=== PATIENT | male | born 1950 | race Caucasian/White ===

== ENCOUNTER 2023-02-02 06:30 | Emergency (ER) | payer OTHER ==
--- OUTSIDE RECORDS SUMMARY | 2023-02-02 06:37 | EXTERNAL MEDICAL SUMMARY RPT | Continuity of Care Document ---
:1950 Author Organization [facility] Address [address] [place] [address] Phone Allergies No information. Encounters No information. Functional Status No information. Immunizations No information. Medications No information. Problems date description facility 2022-11-08 14:08 Ventricular tachycardia, unspecified [facility] Procedures No information. Results/Labs No information. Social History No information. Vital Signs No information.
[2023-02-02] MEDS ORDERED: KETOROLAC 15 MG/ML VIAL IVP STA (06:57)
--- NOTE | 2023-02-02 07:01 | ED Physician Documentation ---
PD HPI HEADACHE - Stated complaint Stated Complaint: STIFF NECK/HEADACHE - Chief complaint Chief Complaint: Trauma Hd/Nk - History of Present Illness Timing - onset: Yesterday Timing - details: Abrupt onset, Still present Worst headache ever?: Worst headache ever? (yes) Location: Back Quality: Other (sharp pain) Associated symptoms: Stiff neck (hurts for ROM and worse with lying down). No: Fever, Nausea, Weakness, Numbness, Vision changes Improved by: Rest. No: Meds (no change with Advil.) Worsened by: Moving. No: Light, Noise Contributing factors: No: Recent illness, Trauma (was gardening 2 days prior without noted injury.) Recently seen: Not recently seen PD PAST MEDICAL HISTORY - Past Medical History Past Medical History: Yes Cardiovascular: Hypertension Neuro: None GI: None - Past Surgical History Past Surgical History: No - Present Medications Home Medications: Ambulatory Orders Medication Instructions Recorded Confirmed hydroCHLOROthiazide [Hydrodiuril] 25 mg PO DAILY 11/19/22 02/02/23 Potassium Chloride 02/02/23 - Allergies Allergies/Adverse Reactions: Allergies Allergy/AdvReac Type Severity Reaction Status Date / Time No Known Drug Allergies Allergy Verified 02/02/23 06:35 - Social History Does the pt smoke?: No Smoking Status: Former smoker Does the pt drink ETOH?: No Does the pt have substance abuse?: No - Immunizations Immunizations are current?: Yes - POLST Patient has POLST: No PD ED PE NORMAL - Vitals Vital signs reviewed: Yes - General General: Alert and oriented X 3, Well developed/nourished - Neck Neck: No adenopathy, No bruit, Other (guarded ROM of the neck. Tender upper neck more to right, in occipital ridge area. No rash nor redness. Not tender to light touch. ) - Derm Derm: Normal color, Warm and dry, No rash - Neuro Neuro: Alert and oriented X 3, No motor deficit, No sensory deficit, Normal speech Results - Vitals Vitals: Vital Signs - 24 hr 02/02/23 06:38 Temperature 37.0 C Heart Rate 68 Respiratory 16 Rate Blood Pressure 156/78 H O2 Saturation 99 Oxygen O2 Source Room air PD Medical Decision Making - ED course ED course: Abrupt onset of posterior neck and occipital headache without noted trauma. Has continued since yesterday with severe pain worse with laying down and movement. No radiation to the extremities. No focal weakness or numbness. No change in vision. He has not had any prior similar episodes. He states that as the worst headache of his life. No recent illness otherwise. I feel consideration for structural problems within the neck such as bony lesions, disc herniation, compressive injuries etc. should be evaluated. Also in consideration would be vascular such as aneurysms or bleeds or dissection. Structural within the brain should be considered as well such as tumors or mass effect. As such I feel the most appropriate testing would be imaging of CT scan of the head and neck with angiography to assess the above possibilities. Still in consideration would be a simple muscular type pain with occipital neuritis.
[2023-02-02] MEDS ORDERED: iohexoL-300 100 ML VIAL ONE (07:15)
[2023-02-02 07:34] LABS: CALCIUM 9.2 mg/dL (8.5-10.3); CREATININE 0.8 mg/dL (0.6-1.2); POTASSIUM 3.7 mmol/L (3.5-5.0)
[2023-02-02 07:48] LABS: BASOPHILS % (AUTO) 0.2 %; EOSINOPHILS % (AUTO) 0.3 %; HCT - HEMATOCRIT 40.7 % (42.0-52.0); HGB - HEMOGLOBIN 14.2 g/dL (14.0-18.0); LYMPHOCYTES # (AUTO) 1.5 10^3/uL (1.5-3.5); LYMPHOCYTES % (AUTO) 12.8 %; MEAN CORPUSCULAR HEMOGLOBIN 33.8 pg (27.0-31.0); MEAN CORPUSCULAR HGB CONC 34.9 g/dL (32.0-36.0); MEAN CORPUSCULAR VOLUME 96.9 fL (80.0-94.0); MEAN PLATELET VOLUME 9.9 fL (7.4-11.4); MONOCYTES % (AUTO) 8.6 %; NEUTROPHILS % (AUTO) 77.8 %; PLT - PLATELET COUNT 299 10^3/uL (130-450); RED CELL DISTRIBUTION WIDTH 11.7 % (12.0-15.0); WHITE BLOOD COUNT 11.5 x10^3/uL (4.8-10.8)
[2023-02-02] MEDS ORDERED: DEXAMETHASONE 10 MG/ML VIAL IVP STA (08:21)
[2023-02-02] MEDS ORDERED: SODIUM CHLORIDE 0.9% 500 ML IV STA (08:27)
--- NOTE | 2023-02-02 08:31 | CT Report ---
PROCEDURE: ANGIO HEAD W/WO INDICATIONS: abrupt severe posterior neck/headache CONTRAST: 80ml omni 300 TECHNIQUE: Precontrast 4.5 mm thick angled axial sections acquired from the foramen magnum to the vertex. Afte r the administration of intravenous contrast, 1 mm thick sections acquired through the [place] of [place] is. Postcontrast 4.5 mm thick sections then re-acquired from the foramen magnum to the vertex. 3-di mensional lmnfiwr-zkhnemyed-esblivcvpm (MIP) and/or volume rendering reformats were acquired of the c entral intracranial vasculature. For radiation dose reduction, the following was used: automated ex posure control, adjustment of mA and/or kV according to patient size. COMPARISON: CTA neck 02/02/2023 FINDINGS: Image quality: Excellent. Anterior circulation: Intracranial internal carotid arteries are normal in size and flow. The flow within the paired anterior cerebral arteries is normal and symmetric. The flow within the middle cer ebral arteries is normal and symmetric. The anterior communicating artery is seen. No aneurysms are seen. Posterior circulation: There is a left vertebral artery dominance. Visualized portions of the verteb ral arteries demonstrate normal caliber, and join to form a normal appearing basilar artery. Flow wi thin the posterior cerebral arteries is normal and symmetric. No aneurysms are seen. The ventricular system and cortical sulci demonstrate atrophy, consistent for patient's stated age. There are areas of hypodensity in the periventricular and subcortical white matter. There is no acut e intra or extra-axial fluid collection. No acute hemorrhage, mass lesion or midline shift. Brainst em is unremarkable. Globes are symmetrical. Sinuses demonstrate mucus retention cyst versus polyp in the right maxillary sinus. Osseous structures are intact. IMPRESSION: 1. No acute intracranial process. 2. Moderate atrophy and chronic microvascular ischemic changes. 3. No areas of hemodynamically significant stenosis, vascular occlusion or aneurysmal dilation within the anterior or posterior circulation. Reviewed by: Katy Vences MD on 02/02/2023 8:29 AM PST Approved by: Katy Vences MD on 02/02/2023 8:29 AM PST Station ID: [id number]
--- NOTE | 2023-02-02 08:31 | CT Report ---
PROCEDURE: ANGIO NECK W INDICATIONS: abrupt severe posterior neck/headache CONTRAST: 80ml omni 300 TECHNIQUE: After the administration of intravenous contrast, 1.5 mm axial sections acquired from the aortic arch to the [place] of [place]. Coronal 3-D maximum intensity projection (MIP) and/or volume rendering ref ormats were then performed. For radiation dose reduction, the following was used: automated exposur e control, adjustment of mA and/or kV according to patient size. COMPARISON: CTA head 02/02/2023 FINDINGS: Image quality: Excellent. Carotid system: The great vessels demonstrate a conventional anatomy as they arise from the aortic a rch. The origins of the common carotid arteries appear patent. The common carotid arteries demonstr ate normal calibers and courses. The bifurcation regions appear normal bilaterally. The internal ca rotid arteries demonstrate normal caliber and course. Posterior circulation: The origins of the vertebral arteries appear patent. The more superior porti ons of the vertebral arteries demonstrate normal course and caliber. They join to form a normal appe aring basilar artery. Soft tissues: Visualized neck soft tissues demonstrate no suspicious abnormalities. The thyroid is normal in size and there are no incidental findings. Bones: No suspicious bony lesions. Visualized cervical spine appears normally aligned. IMPRESSION: There are no areas of hemodynamically significant stenosis, vascular occlusion or aneurysmal dilation within the neck vasculature. The estimate of stenosis included in the report of the imaging study was calculated using the NASCET method CLINICAL RECOMMENDATION STATEMENTS: In patients <35 years with an ITN detected on CT, MRI, or extrathyroidal ultrasound, the Committee re commends further evaluation with dedicated thyroid ultrasound if the nodule is "e1 cm and has no susp icious imaging features, and if the patient has normal life expectancy. In patients "e35 years with an ITN detected on CT, MRI, or extrathyroidal ultrasound, the Committee r ecommends further evaluation with dedicated thyroid ultrasound if the nodule is "e1.5 cm and has no s uspicious imaging features, and if the patient has normal life expectancy. (ACR, 2014) Reviewed by: Katy Vences MD on 02/02/2023 8:30 AM PST Approved by: Katy Vences MD on 02/02/2023 8:30 AM PST Station ID: [id number]
[2023-02-02] MEDS ORDERED: SODIUM CHLORIDE 0.9% 1,000 ML IV STA (08:40)
--- NOTE | 2023-02-02 08:49 | ED Physician Documentation ---
PD HPI NECK PAIN - Stated complaint Stated Complaint: STIFF NECK/HEADACHE - Chief complaint Chief Complaint: Trauma Hd/Nk - History obtained from History obtained from: Patient, Family - History of Present Illness Timing - onset: How many days ago (3) Timing - duration: Days (3) Timing - details: Abrupt onset, Still present Location: Right Quality: Pain, Spasm, Sharp Associated symptoms: Other (headache). No: Fever, Weakness, Numbness, Incontinent of urine, Unable to urinate, Hematuria, Incontinent of stool Improves with: Rest, Position Worsened by: Movement, Palpation Contributing factors: Other (hx of golfing and weight lifting) Similar symptoms before: Has not had sx before Recently seen: Not recently seen - Additional information Additional information: 72-year-old Nuno Alaniz who has a history of hypertension and hemochromatosis has developed acute neck pain about 3 days ago. He has had wo rsening of this neck pain over the past 3 days and has a severe headache. He notes the onset of this to be acute and not typical to what has happened to him previously. He previously will have some stiff neck or muscle spasm in his upper back after playing golf and this usually resolves within a day. He does state that he did play golf last week and he did do some weightlifting as well. Days before the onset of this pain. He has not otherwise been ill. He does take hydrochlorothiazide and he typically will drink less fluids if he has to travel somewhere. Review of Systems Constitutional: denies: Fever, Chills, Myalgias Eyes: denies: Decreased vision Ears: denies: Ear pain Nose: denies: Rhinorrhea / runny nose, Congestion Throat: denies: Sore throat Cardiac: denies: Chest pain / pressure Respiratory: denies: Dyspnea, Cough GI: denies: Abdominal Pain, Nausea, Vomiting : denies: Dysuria, Frequency Skin: denies: Rash Musculoskeletal: reports: Neck pain. denies: Back pain, Extremity pain Neurologic: reports: Headache. denies: Generalized weakness, Focal weakness, Numbness, Difficulty speaking, Near syncope, Confused, Altered mental status, Head injury, LOC PD PAST MEDICAL HISTORY - Past Medical History Past Medical History: Yes Cardiovascular: Hypertension Neuro: None GI: None - Past Surgical History Past Surgical History: No - Present Medications Home Medications: Ambulatory Orders Medication Instructions Recorded Confirmed hydroCHLOROthiazide [Hydrodiuril] 25 mg PO DAILY 11/19/22 02/02/23 Cyclobenzaprine [Flexeril] 10 mg PO TID PRN #20 tablet 02/02/23 HYDROcod/ACETAM 5/325 [[place] 5/325] 1 - 2 tablet PO Q6H PRN #14 tablet 02/02/23 Potassium Chloride 02/02/23 - Allergies Allergies/Adverse Reactions: Allergies Allergy/AdvReac Type Severity Reaction Status Date / Time No Known Drug Allergies Allergy Verified 02/02/23 06:35 - Social History Does the pt smoke?: No Smoking Status: Former smoker Does the pt drink ETOH?: No Does the pt have substance abuse?: No - Immunizations Immunizations are current?: Yes - POLST Patient has POLST: No PD ED PE NORMAL - Vitals Vital signs reviewed: Yes (hypertensive ) - General General: Alert and oriented X 3, Well developed/nourished, Other (Supervisor Plasma tone and flattened affect consistent with pain) - HEENT HEENT: Atraumatic, PERRL, EOMI - Neck Neck: No bony TTP, Other (The neck has poor ROM secondary to pain. There is tenderness to the tapezius at the insertion to the occiput but without the typical tension seen in the muscle itself. 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, No motor deficit, No sensory deficit, Normal speech Eye Opening: Spontaneous Motor: Obeys Commands Verbal: Oriented GCS Score: 15 - Psych Psych: Normal mood Results - Vitals Vitals: Vital Signs - 24 hr 02/02/23 06:38 Temperature 37.0 C Heart Rate 68 Respiratory 16 Rate Blood Pressure 156/78 H O2 Saturation 99 Oxygen O2 Source Room air - Labs Labs: Laboratory Tests 02/02/23 02/02/23 02/02/23 07:16 07:16 07:16 WBC 11.5 H RBC 4.20 L Hgb 14.2 Hct 40.7 L MCV 96.9 H MCH 33.8 H MCHC 34.9 RDW 11.7 L Plt Count 299 MPV 9.9 Neut # (Auto) 9.0 H Lymph # (Auto) 1.5 Alfalfa # (Auto) 1.0 Eos # (Auto) 0.0 Baso # (Auto) 0.0 Absolute Nucleated RBC 0.00 Nucleated RBC % 0.0 ESR 29 H Sodium 137 Potassium 3.7 Chloride 103 Carbon Dioxide 27 Anion Gap 7.0 BUN 19 Creatinine 0.8 Estimated GFR (MDRD) 94 Glucose 111 H Calcium 9.2 - Rads (name of study) CTA neck Radiology: Prelim report reviewed (Impression: There are no areas of hemody namically significant stenosis, vascular occlusion or aneurysmal dilation within the neck vasculature.), EMP read indepedently, See rad report CTA head Radiology: Prelim report reviewed (Impression: 1. No acute intracranial process. Moderate atrophy and chronic microvascular ischemic changes. No areas of hemodynamically significant stenosis vascular occlusion or aneurysmal dilation with any anterior or posterior circulation.), EMP read indepedently, See rad report Procedures - IVC sono (time) 0840 Bedside IVC sono: IVC measures (cm) (0.9), IVC collapsed c insp (cm) (complete), Dehydration (est 1+ liter deficit) PD Medical Decision Making - ED course Complexity details: reviewed old records, reviewed results, re-evaluated patient, considered differential, d/w patient, d/w family Reviewed Lab Results: We reviewed a complete blood count with a mildly elevated white blood cell count at 11.5 normal hemoglobin and hematocrit and normal platelets. We found the sedimentation rate to be elevated at 29 and his chemistries were otherwise unremarkable with normal electrolytes BUN and creatinine ED course: 72-year-old male presents to the emergency part with acute neck pain and a severe headache. Prior to my arrival to the emergency department the off going emergency department physician Dr. Flores evaluated the patient found him to have some tenderness to his neck and the worst headache of his life. The patient's history was consistent with the possibility of a vascular dissection and a CTA of the head and neck were performed which were unremarkable. The patient responded to treatment with Toradol with improvement in his headache he was given a dose of dexamethasone as well with further improvement. The patient indicates by further history that he is taking hydrochlorothiazide and frequently will have muscle spasms in his upper back and neck. He also indicates that typically if he is traveling somewhere he will decrease his oral intake of fluid so that he does not have to get up to go to the bathroom as often. I interrogated the patient's inferior vena cava with POCUS and found that he was dehydrated and provided intravenous hydration. I found this issue with dehydration and his muscle spasms and his use of hydrochlorothiazide to indicate that maybe it is time for him to come off of his hydrochlorothiazide. I have asked him to follow-up with his primary care doctor regarding this issue as well. We will provide the patient with some pain medication a muscle relaxant. Departure - Departure Disposition: Home, Self Care Clinical Impression: Torticollis, Dehydration Condition: Stable Instructions: Torticollis, ED Dehydration Follow-Up: Nate Galan MD [Physician No Access] - Prescriptions: Cyclobenzaprine [Flexeril] 10 mg PO TID PRN #20 tablet PRN Reason: Spasms HYDROcod/ACETAM 5/325 [[place] 5/325] 1 - 2 tablet PO Q6H PRN #14 tablet PRN Reason: Pain Comments: Nuno, today it looks like there is inflammation in the muscles of your neck and we did not find any evidence of abnormality to the arteries in your neck or head. We also found that you were dehydrated today and this likely has some bearing on your pain. My recommendation is to follow-up with your primary care doctor about your use of hydrochlorothiazide. I would recommend attempting to get off of this medication. There was a slight elevation in your sedimentation rate today which indicates a possible rheumatologic problem. A follow-up with your primary care doctor is indicated for this as well. The expectation with treatment given today as you should have some marked improvement in your neck pain today and you may have some issue with the pain for up to a week. I have provided some additional medication for your use. I have E scribed some Flexeril and hydrocodone to the [facility] in [place].
[2023-02-02] MEDS ORDERED: iohexoL-300 100 ML VIAL IVP ONE (08:57)
[2023-02-02 10:14] VITALS: BP 144/63
== END 2023-02-02 10:16 | disposition home or self-care (01) ==
LOC: ED 06:30
DX: M43.6 Torticollis (principal); E86.0 Dehydration; R70.0 Elevated erythrocyte sedimentation rate; I10 Essential (primary) hypertension; Z87.891 Personal history of nicotine dependence
CPT/HCPCS: 36415; 70496; 70498; 80048; 85025; 85651; 96361; 96374; 96375; 99284; Q9967